=== PATIENT | female | born 1990 | race Caucasian/White ===

== ENCOUNTER 2016-09-25 12:23 | Outpatient (CLI) | payer MEDICAID ==
[~2016-09-25] VITALS: Ht 170.2 cm; Wt 70.0 kg
[~2016-09-25 12:23] MED LIST: FERR27TA PO; PREN1TAB49 PO
[2016-09-25 12:31] VITALS: Ht 170.2 cm; Wt 70.0 kg
[2016-09-25 12:40] VITALS: BP 115/68; PULSE 75
[2016-09-25] MEDS ORDERED: LACTATED RINGER'S 1,000 ML IV ONE (13:00)
[2016-09-25 13:30] LABS: BASOPHILS % 0.4 % (0.0-2.0); EOSINOPHILS % 0.6 % (0.0-7.0); HEMATOCRIT 39.6 % (37.0-47.0); HEMOGLOBIN 13.4 g/dl (12.0-16.0); LYMPHOCYTES # 1.8 10^3/ul (0.8-2.9); LYMPHOCYTES % 26.5 % (15.0-51.0); MEAN CORPUSCULAR HGB CONC 33.7 g/dl (32.0-37.0); MEAN CORPUSCULAR VOLUME 92.1 fl (82.0-101.0); MEAN PLATELET VOLUME 9.4 fl (7.4-10.4); MONOCYTE # 0.5 10^3/ul (0.3-0.9); MONOCYTES % 7.6 % (0.0-11.0); NEUTROPHIL # 4.4 10^3/ul (1.6-7.5); NEUTROPHILS % 64.9 % (39.0-77.0); PLATELET COUNT 193 10^3/UL (140-440); RED CELL DISTRIBUTION WIDTH 14.3 % (11.5-14.5); UNCORRECTED WBC 6.8 10^3/ul (4.8-10.8); WHITE BLOOD COUNT 6.8 10^3/ul (4.8-10.8)
[2016-09-25] MEDS ORDERED: TERBUTALINE 1 MG/ML INJ SC ONE ×2 (13:30→14:30)
[2016-09-25 13:33] LABS: CONDITION 1
[2016-09-25 13:38] LABS: ADD UMIC YES; URINE BILIRUBIN (Dip) NEGATIVE (NEGATIVE); URINE BLOOD (Dip) NEGATIVE (NEGATIVE); URINE COLOR LT. YELLOW (YELLOW); URINE GLUCOSE (Dip) NEGATIVE (NEGATIVE); URINE KETONES (Dip) NEGATIVE (NEGATIVE); URINE LEUKOCYTE ESTERASE (Dip) TRACE (NEGATIVE); URINE NITRITE (Dip) NEGATIVE (NEGATIVE); URINE TOTAL PROTEIN (Dip) NEGATIVE (NEGATIVE); URINE UROBILINOGEN (Dip) 0.2 E.U./dL (0.1-1.0)
[2016-09-25 13:49] LABS: SQUAMOUS EPITHELIAL CELL,UR FEW; URINE RBCS NONE SEEN /HPF (0)
--- NOTE | 2016-09-25 18:00 | TRIAGE ---
OB Triage Datetime Report Generated by CPN: 09/25/2016 17:59 Datetime: 09/25/2016 16:37 Stage of : OB Triage Labor Evaluation Frequency: NONE Monitor Mode: External Resting Tone [place]: Relaxed Heart Rate FHR Baseline Rate: 150 Monitor Mode: External US FHR Baseline Changes: No Baseline Change Variability: Moderate 6-25 bpm Accelerations: 15X15 Decelerations: None Category: Category I Pain Assessment Pain Scale: 0 Pain Presence: None/Denies Pain Type: N/A Pain Goal: 3 Datetime: 09/25/2016 15:56 Stage of : OB Triage Labor Evaluation Frequency: X2 Monitor Mode: External Duration (sec)2399: 30-40 Quality: Moderate Pattern: Normal: <= 5 Contractions in 10 Minutes Resting Tone [place]: Relaxed Heart Rate FHR Baseline Rate: 140 Monitor Mode: External US FHR Baseline Changes: No Baseline Change Variability: Moderate 6-25 bpm Accelerations: 15X15 Decelerations: None Category: Category I Pain Assessment Pain Scale: 0 Pain Presence: None/Denies Pain Type: N/A Pain Goal: 3 Datetime: 09/25/2016 15:00 Stage of : OB Triage Labor Evaluation Frequency: X4 Monitor Mode: External Duration (sec)2399: 60-90 Quality: Moderate Pattern: Normal: <= 5 Contractions in 10 Minutes Resting Tone [place]: Relaxed Heart Rate FHR Baseline Rate: 140 Monitor Mode: External US FHR Baseline Changes: No Baseline Change Variability: Moderate 6-25 bpm Accelerations: 15X15 Decelerations: None Category: Category I Pain Assessment Pain Scale: 0 Pain Presence: None/Denies Pain Type: N/A Pain Goal: 3 Pain Assessment Comments: PT STATES FEELING BETTER Datetime: 09/25/2016 14:00 Stage of : OB Triage Labor Evaluation Frequency: X5 Monitor Mode: External Duration (sec)2399: 60-90 Quality: Moderate Pattern: Normal: <= 5 Contractions in 10 Minutes Resting Tone [place]: Relaxed Heart Rate FHR Baseline Rate: 140 Monitor Mode: External US FHR Baseline Changes: No Baseline Change Variability: Moderate 6-25 bpm Accelerations: 15X15 Decelerations: None Category: Category I Pain Assessment Pain Scale: 0 Pain Presence: None/Denies Pain Type: N/A Pain Goal: 3 Datetime: 09/25/2016 13:30 Labor Evaluation Frequency: x4 Monitor Mode: External Duration (sec)2399: 60-90 Quality: Moderate Pattern: Normal: <= 5 Contractions in 10 Minutes Resting Tone [place]: Relaxed Heart Rate FHR Baseline Rate: 140 Monitor Mode: External US FHR Baseline Changes: No Baseline Change Variability: Moderate 6-25 bpm Accelerations: 15X15 Decelerations: None Category: Category I Pain Assessment Pain Scale: 0 Pain Presence: None/Denies Pain Type: N/A Pain Goal: 3 Datetime: 09/25/2016 12:56 Maternal Assessment Level of Consciousness: Fully Conscious DTR's/Clonus: DTRs 1+ Headache: Denies Blurred Vision: No Nausea/Vomiting: Denies RUQ Epigastric Pain: Denies Facial Edema: None Labor Evaluation Frequency: 2-4 Monitor Mode: External Duration (sec)2399: 60-80 Quality: Mild Pattern: Normal: <= 5 Contractions in 10 Minutes Resting Tone [place]: Relaxed Heart Rate FHR Baseline Rate: 140 Monitor Mode: External US Variability: Moderate 6-25 bpm Accelerations: 15X15 Decelerations: None Category: Category I Pain Assessment Pain Scale: 0 Pain Presence: None/Denies Pain Type: N/A Pain Goal: 3 Membrane Status: Intact Datetime: 09/25/2016 12:40 Vaginal Exam Dilatation (cms): 1.5 Effacement (%): 50 Station: -3 Exam By: CADY GILMAN Vaginal Bleeding: None Cervix, Consistency: Soft Cervix, Position: Midposition Datetime: 09/25/2016 12:27 Assessment Type: Triage Maternal Assessment Level of Consciousness: Fully Conscious DTR's/Clonus: DTRs 2+; No Clonus Headache: Denies Blurred Vision: No Respiratory Effort: Unlabored; Regular Rhythm; Equal Expansion Breath Sounds, Left: Clear and Equal Breath Sounds, Right: Clear and Equal Nausea/Vomiting: Denies RUQ Epigastric Pain: Denies Lower Extremities Edema: None Degree: None Upper Extremities Edema: None Degree: None Facial Edema: None Fall Risk Assessment History of Falling: (0) No Secondary Diagnosis: (0) No Ambulatory Aid: (0) Bedrest/Nurse Assist IV Therapy: (0) No Gait: (0) Normal/Bedrest/Immobile Mental Status: (0) Oriented to Own Ability Fall Score: 0 Fall Risk Score Definition: No Risk: No action required Datetime: 09/25/2016 12:25 Time of Arrival: 09/25/2016 12:25 EGA: 36.1 Arrived By: Ambulatory Arrived From: Other Unit in Hospital Chief Complaint: PT WAS SENT FROM NST TO R/OL LABOR REPEAT Movement: Present Contractions: Regular Contractions: 2-5 MIN Rupture of Membranes: Denies Vaginal Bleeding: None Vaginal Discharge: Denies Recent Sexual Intercouse: Denies Abdominal Trauma: Not Applicable Patient Complaints: Contractions Additional Patient Complaints: NONE Time Provider Notified: 09/25/2016 13:00 Provider Notified: JOSEPH Initial Plan: MONITOR AND VE IV HYDRATION AND TERBUTALINE X 2
--- NOTE | 2016-09-25 22:05 | NSTRPT ---
NST Information Datetime Report Generated by CPN: 09/25/2016 22:05 Datetime: 09/25/2016 10:55 NST Information EGA: 36.1 Test Number: 8 Time on Monitor: 09/25/2016 11:02 Time off Monitor: 09/25/2016 11:49 NST Duration (Min): 47 Reason for NST: Low RAFI Test and Monitor Explained: Monitor Explained; Test Explained; Verbalized Understanding Pulse: 74 Resp: 19 SBP: 94 DBP: 57 Test Evaluation NST Interventions: PO Hydration Patient States Movement: Present Contraction Frequency: Q2-5min, mild FHR Baseline : 135 Variability: Moderate 6-25bpm Accelerations: 15X15 Decelerations: None FHR Category: Category I NST Results: Reactive Comments: PT TO U/S. [place] 16.6, cephalic. 1202- Report given to Dr. Jeffery. New orderes received. S end patient to OB-TRG to r/o Labor for Hx of previoues C/section x2. Explained to Pt Plan of Care. F ollow up NST appointment given. Pt states understanding. (Annotations: Data stored by [facility] on behalf of user) Comments: PT TO U/S. [place] 16.6, cephalic. 1204-Pt to OB Triage Electronically Signed By E-Signature: with User ID: [id number] Datetime: 09/20/2016 10:42 NST Information EGA: 35.3 NST Duration (Min): 33 Datetime: 09/13/2016 10:55 NST Information EGA: 34.3 NST Duration (Min): 23 Datetime: 09/10/2016 10:23 NST Information EGA: 34.0 NST Duration (Min): 33 Datetime: 09/06/2016 08:43 NST Information EGA: 33.3 NST Duration (Min): 34 Datetime: 09/03/2016 08:51 NST Information EGA: 33.0 NST Duration (Min): 43 Datetime: 08/30/2016 08:48 NST Information EGA: 32.3 NST Duration (Min): 33 Datetime: 08/27/2016 09:18 NST Information EGA: 32.0 Datetime: 08/27/2016 09:11 NST Duration (Min): 44
== END 2016-09-25 16:58 | disposition home or self-care (01) ==
LOC: OBT 12:23 → L-D 12:24 → OBT 16:58
PROVIDERS: ATTEND Obstetrics & Gynecology
DX: O62.9 Abnormality of forces of labor, unspecified (principal); O34.219 Maternal care for unspecified type scar from previous cesarean delivery; Z3A.36 36 weeks gestation of pregnancy
CPT/HCPCS: 36415; 81001; 85025; 86592; 86850; 86900; 86901; 96360; 96372; J3105; J7120; Z7500; 81003; G0463

== ENCOUNTER 2016-10-05 10:14 | Inpatient (IN) | payer MEDICAID ==
[2016-10-05] VITALS (7 sets, daily range): BP systolic 89–110; BP diastolic 49–72; PULSE 74–91; RESP 18; Ht 162.6 cm; Wt 73.7 kg
[~2016-10-05] VITALS: Ht 162.6 cm; Wt 73.7 kg
[~2016-10-05 10:14] MED LIST changes: +OXYTOCIN 30 UNITS/LR 500 ML BAG IV ONE
--- NOTE | 2016-10-05 10:54 | TRIAGE ---
OB Triage Datetime Report Generated by CPN: 10/05/2016 10:53 Datetime: 10/05/2016 10:44 Vaginal Exam Dilatation (cms): 0.0 Effacement (%): 0 Station: -3 Exam By: Maryanne RN Datetime: 10/05/2016 10:29 Assessment Type: Triage Maternal Assessment Level of Consciousness: Fully Conscious DTR's/Clonus: DTRs 2+; No Clonus Headache: Denies Blurred Vision: No Respiratory Effort: Unlabored; Regular Rhythm; Equal Expansion Breath Sounds, Left: Clear and Equal Breath Sounds, Right: Clear and Equal Nausea/Vomiting: Denies RUQ Epigastric Pain: Denies Lower Extremities Edema: Bilateral Lower Extremities Degree: 1+ Upper Extremities Edema: None Degree: None Facial Edema: None Temperature Route: Oral Fall Risk Assessment History of Falling: (0) No Secondary Diagnosis: (0) No Ambulatory Aid: (0) Bedrest/Nurse Assist IV Therapy: (0) No Gait: (0) Normal/Bedrest/Immobile Mental Status: (0) Oriented to Own Ability Fall Score: 0 Fall Risk Score Definition: No Risk: No action required Datetime: 10/05/2016 10:26 Stage of : OB Triage Datetime: 10/05/2016 10:24 Time of Arrival: 10/05/2016 10:14 EGA: 37.4 Arrived By: Ambulatory Arrived From: Other Unit in Hospital Chief Complaint: UC, perineal pressure Movement: Present Contractions: Regular Time Contractions Began: 10/05/2016 04:45 Rupture of Membranes: Ruptured Vaginal Bleeding: None Vaginal Discharge: Denies Recent Sexual Intercouse: Denies Abdominal Trauma: Not Applicable Patient Complaints: Contractions Time Provider Notified: 10/05/2016 10:47 Provider Notified: Jose D Initial Plan: NST Datetime: 09/25/2016 16:45 Patient Complaints: Other Datetime: 09/25/2016 12:27 Fall Score: 0 Fall Risk Score Definition: No Risk: No action required Datetime: 09/25/2016 12:25 EGA: 36.1
[2016-10-05] MEDS ORDERED: OXYTOCIN 30 UNITS/LR 500 ML IV SCH (11:00)
[2016-10-05] MEDS ORDERED: CEFAZOLIN 2 GM/50 ML (PMX) 50 ML IV SCH (11:00)
[2016-10-05] MEDS ORDERED: LACTATED RINGER'S 1,000 ML IV SCH (11:00)
[2016-10-05] MEDS ORDERED: MISOPROSTOL 200 MCG TAB PR PRN ×2 (11:00→20:30)
[2016-10-05] MEDS ORDERED: OXYTOCIN 30 UNITS/LR 500 ML IV PRN ×2 (11:00→20:30)
[2016-10-05] MEDS ORDERED: METHYLERGONOVINE 0.2 MG INJ IM PRN ×2 (11:00→20:30)
[2016-10-05] MEDS ORDERED: CARBOPROST 250 MCG INJ IM PRN ×2 (11:00→20:30)
[2016-10-05 12:04] LABS: BASOPHILS % 0.6 % (0.0-2.0); EOSINOPHILS # 0.1 10^3/ul (0.0-0.5); EOSINOPHILS % 0.9 % (0.0-7.0); HEMOGLOBIN 12.7 g/dl (12.0-16.0); LYMPHOCYTES # 2.2 10^3/ul (0.8-2.9); LYMPHOCYTES % 32.9 % (15.0-51.0); MEAN CORPUSCULAR HEMOGLOBIN 31.2 pg (29.0-33.0); MEAN CORPUSCULAR HGB CONC 33.5 g/dl (32.0-37.0); MEAN PLATELET VOLUME 8.9 fl (7.4-10.4); MONOCYTE # 0.5 10^3/ul (0.3-0.9); MONOCYTES % 7.7 % (0.0-11.0); NEUTROPHIL # 3.8 10^3/ul (1.6-7.5); NEUTROPHILS % 57.9 % (39.0-77.0); PLATELET COUNT 197 10^3/UL (140-440); RED BLOOD COUNT 4.09 10^6/ul (4.20-5.40); RED CELL DISTRIBUTION WIDTH 13.9 % (11.5-14.5); UNCORRECTED WBC 6.6 10^3/ul (4.8-10.8); WHITE BLOOD COUNT 6.6 10^3/ul (4.8-10.8)
[2016-10-05 12:06] LABS: CONDITION 1
[2016-10-05 12:10] LABS: INR 0.96; PROTIME 12.8 Sec (12.2-14.2)
[2016-10-05 12:11] LABS: PARTIAL THROMBOPLASTIN TIME 27.5 Sec (25.0-35.0)
[2016-10-05] MEDS ORDERED: morphine SULFATE/PF (10 MG/10 ML) INJ ONE (15:25)
[2016-10-05] MEDS ORDERED: PHENYLephrine (100 MCG/ML) 5ML SYG ONE (15:25)
[2016-10-05] MEDS ORDERED: EPHEDrine SULFATE 50 MG/5 ML SYG ONE (15:26)
[2016-10-05] MEDS ORDERED: KETOROLAC 30 MG INJ IV ONE (16:00)
[2016-10-05] MEDS ORDERED: DIPHENHYDRAMINE 50 MG INJ IV PRN (16:00)
[2016-10-05] MEDS ORDERED: FENTAnyl 50 MCG/ML VIAL IV PRN ×2 (16:00)
[2016-10-05] MEDS ORDERED: ONDANSETRON 4 MG INJ IV PRN ×2 (16:00)
[2016-10-05] MEDS ORDERED: MEPERIDINE 25 MG INJ IV PRN (16:00)
[2016-10-05] MEDS ORDERED: PROCHLORPERAZINE 10 MG INJ IV PRN (16:00)
[2016-10-05] MEDS ORDERED: HYDROmorphONE (0.2 MG/ML) 10ML SYG IV PRN ×3 (16:00)
[2016-10-05] MEDS ORDERED: NALOXONE (0.4 MG/ML) INJ IV PRN (16:00)
[2016-10-05] MEDS ORDERED: HYDROmorphONE 1 MG/ML SYG IV PRN ×2 (16:00)
[2016-10-05] MEDS ORDERED: ZOLPIDEM 5 MG TAB PO PRN (16:00)
--- NOTE | 2016-10-05 16:28 | HP ---
Date/Time of Note Date/Time of Note DATE: 10/05/16 TIME: 16:23 OB - History Hx of Present Free Text/Dictation admitted in labor at 37+ weeks in labor and history of previous C/S X 2 Chief Complaint: labor contractions Last Menstrual Period: Jan 16, 2016 Estimated Due Date: Oct 22, 2016 : 3 Para: 2 Care: Good Care Ultrasounds: Normal mid trimester US Obstetrical Complications: None Medical Complications: Other (previous C/S X 2 ) Past Family/Social History * Past Medical, Surgical, Family and Obstetric Histories reviewed from chart. Blood Type: O+ Rubella: immune RPR/VDRL: Negative GBS Status: Unknown HBsAG: Negative OB Admission Exam Vital Signs Vital Signs Vital Signs Date Time Temp Pulse Resp B/P Pulse Ox O2 Delivery O2 Flow Rate FiO2 10/05/16 10:31 98.2 91 18 110/72 Room Air Physical Exam HEENT: WNL Heart: Rhythm Normal Lungs: Clear, Equal Abdomen: WNL Extremities: Normal Reflexes: Normal Cervical Dilatation: Fingertip Effacement: 0% Station: Ballotable Membranes: Intact Heart Rate: 150's Accelerations: Accelerations Present Decelerations: No Decelerations Varibility: Marked Contractions on Admission: < 5 Minutes Apart Date/Time Contractions Began: 10/05/2015 0800 Frequency of Contractions: q 2 Duration: >60 seconds Intensity: Moderate Last 72 hours Lab Results CBC & BMP 10/05/16 11:30 OB Assessment/Plan Other Assessment: 37 + weeks gestation previous C/S X 2 labor pains Other plan: repeat C/S PRERNA TREVINO MD Oct 05, 2016 16:28
--- NOTE | 2016-10-05 16:31 | OPR ---
Operative Report Planned Procedure Procedure date Oct 05, 2016 Procedure(s) repeat C/S Performed by: PRERNA TREVINO MD Assisting provider: JUMANA MARTINEZ MD Anesthesiologist: MARISOL DAVID Pre-procedure diagnosis 37 + weeks gestation previous C/S X 2 labor pains Anesthesia Type: spinal Procedure Description Under satisfactory anaesthesia a Pfannenstiel incision was made two fingerbreadth above and parallel to the symphysis of pubis around the previous scar and previous scar was removed Incision was extended laterally to the border of the Recti muscles on either sides. Incision was carried down with sharp and blunt dissection until fascia was reached. Anterior Recti muscle fascia was incised in mid portion and incision extended laterally to the border of skin incision. Fascia was mobilized from muscle superiorly and Recti muscles were from midline using sharp and blunt dissection. Peritoneum was visualized; Avoiding bowel and bladder it was incised . Incision was extended superiorly and inferiorly. Bladder blade was placed. Posterior peritoneum covering the lower segment of the uterus and lower segment of the uterus were incised.Low transverse uterine incision was made on lower segment of the uterus. Incision extended laterally to the border of Round Lig. on either sides and baby was delivered from OT. position . Amniotic fluid appeared clear. Cord blood was obtained and cord had 3 vessels . Placenta was delivered spontaneously and appeared intact and complete. Intrauterine cavity was rubbed with a laparotomy sponge. Uterine incision was closed in 2 layers using running stitches of No1 Monocryl. Hemostasis appeared secure. Ovaries and Fallopian tubes were within normal limits. Announcing needle, lap sponge and instrument count to be correct abdomen was closed in layers as follows: Peritoneum and Recti muscles with running stitches of 20 Vicryl. Fascia with running stitch of No 1 PDS. Subcutaneous tissue with running stitches of 20 Chromic and skin was closed using thalia. Patient tolerated the procedure well and was transferred to [facility] in good condition. Post-Procedure Post-procedure diagnosis S/P C/S Findings: Live Baby Specimen removed: No Complications: None Pt Condition post procedure: stable Disposition: PACU Physician Certification I, the undersigned physician, hereby certify that I have discussed the procedure described in this consent form with this patient (or the patient's legal players club representative), including: * The risk and benefits of the procedure; * Any adverse reactions that may reasonably be expected to occur; * Any alternative efficacious methods of treatment which may be medically viable ; * The potential problems that may occur during recuperation; * Potential for blood transfusion and associated risks/benefits; and * Any research or economic interest I may have regarding this treatment. I further certify that the patient/legally responsible person was encouraged to ask question and that all questions were answered. PRERNA TREVINO MD Oct 05, 2016 16:30
[2016-10-05] MEDS ORDERED: LANOLIN 7 GM TUBE TOP PRN (20:30)
[2016-10-05] MEDS ORDERED: NA PHOSPHATE/BIPHOS 133 ML ENEMA PR PRN (20:30)
[2016-10-05] MEDS ORDERED: ACETAMINOPHEN/CODEINE #3 TAB PO PRN (20:30)
[2016-10-05] MEDS: SENNA/DOCUSATE NA (8.6MG/50MG) TAB PO SCH (21:00)
[2016-10-05] MEDS: CEFAZOLIN 2 GM/50 ML (PMX) 50 ML IV SCH (21:19)
[2016-10-05] MEDS: LACTATED RINGER'S 1,000 ML IV SCH (22:33)
[2016-10-06] VITALS: BP 101/58; PULSE 75; RESP 18
[2016-10-06 03:57] VITALS: BP 100/55; PULSE 76; RESP 18
[2016-10-06] MEDS: CEFAZOLIN 2 GM/50 ML (PMX) 50 ML IV SCH ×2 (04:33→11:57)
[2016-10-06] MEDS: KETOROLAC 30 MG INJ IV PRN ×2 (04:54→11:57)
[2016-10-06] MEDS: CLINDAMYCIN 300 MG CAP PO SCH ×3 (06:00→18:10)
[2016-10-06] MEDS: LACTATED RINGER'S 1,000 ML IV SCH ×2 (06:43→12:30)
[2016-10-06 07:58] LABS: BASOPHILS % 0.5 % (0.0-2.0); EOSINOPHILS % 0.3 % (0.0-7.0); HEMATOCRIT 34.5 % (37.0-47.0); HEMOGLOBIN 11.7 g/dl (12.0-16.0); LYMPHOCYTES # 1.8 10^3/ul (0.8-2.9); LYMPHOCYTES % 21.2 % (15.0-51.0); MEAN CORPUSCULAR HEMOGLOBIN 31.6 pg (29.0-33.0); MEAN CORPUSCULAR VOLUME 93.1 fl (82.0-101.0); MEAN PLATELET VOLUME 9.1 fl (7.4-10.4); MONOCYTE # 0.6 10^3/ul (0.3-0.9); PLATELET COUNT 182 10^3/UL (140-440); UNCORRECTED WBC 8.4 10^3/ul (4.8-10.8); WHITE BLOOD COUNT 8.4 10^3/ul (4.8-10.8)
[2016-10-06 08:00] VITALS: BP 100/50; PULSE 69; RESP 17
[2016-10-06 08:09] LABS: CONDITION 1
[2016-10-06] MEDS: SENNA/DOCUSATE NA (8.6MG/50MG) TAB PO SCH ×2 (08:44→21:45)
[2016-10-06] MEDS ORDERED: BISACODYL 10 MG SUPP PR ONE (09:30)
[2016-10-06 12:00] VITALS: BP 101/55; PULSE 68; RESP 17
[2016-10-06] MEDS: IBUPROFEN 800 MG TAB PO SCH ×2 (14:00→21:45)
--- NOTE | 2016-10-06 15:42 | PN ---
Date/Time of Note Date/Time of Note DATE: 10/06/16 TIME: 15:39 Assessment/Plan VTE Prophylaxis VTE Prophylaxis Intervention: ambulation Lines/Catheters IV Catheter Type (from Nrs): Peripheral IV Assessment/Plan Assessment/Plan POD # 1 S/P C/S will advance diet and ambulate Subjective 24 Hr Interval Summary NO BM passing flatus Exam/Review of Systems Vital Signs Vitals Vital Signs Date Time Temp Pulse Resp B/P Pulse Ox O2 Delivery O2 Flow Rate FiO2 10/06/16 12:00 98.4 68 17 101/55 Room Air 10/06/16 09:05 96 10/06/16 05:22 21 Intake and Output 10/05/16 10/05/16 10/06/16 15:00 23:00 07:00 Intake Total 1175 ml 50 ml 1050 ml Output Total 350 ml 700 ml 1400 ml Balance 825 ml -650 ml -350 ml Exam Free Text/Dictation vss P/E : NL abdomen: soft BS + Incision: covered Results Result Diagram: 10/06/16 0645 PRERNA TREVINO MD Oct 06, 2016 15:42
[2016-10-06 16:00] VITALS: BP 106/58; RESP 17
[2016-10-06] MEDS: OXYCODONE/ACETAMINOPHEN (5/325) TAB PO PRN (18:14)
[2016-10-06 19:25] VITALS: BP 111/66; PULSE 77; RESP 19
[2016-10-07 03:30] VITALS: BP 102/64; PULSE 67; RESP 19
[2016-10-07] MEDS: IBUPROFEN 800 MG TAB PO SCH ×3 (05:41→21:10)
[2016-10-07] MEDS: CLINDAMYCIN 300 MG CAP PO SCH ×4 (05:41→18:09)
[2016-10-07 08:10] VITALS: BP 96/56; PULSE 61; RESP 16
[2016-10-07] MEDS: SENNA/DOCUSATE NA (8.6MG/50MG) TAB PO SCH ×2 (09:07→21:10)
--- NOTE | 2016-10-07 14:42 | DS ---
Date/Time of Note Date/Time of Note home next day DATE: 10/07/16 TIME: 14:41 Obstetrical Discharge Record Final Diagnosis Final Diagnosis: Term delivered Other Final Diagnosis S/P repeat C/S Section Section: Repeat Condition on Discharge Physical Assessment Last Vitals: see nurses notes Voiding: Yes Bowel Movement: Yes Breast: Soft, non-tender, Filling Fundus: Firm Abdomen and Incision: soft BS + Incision: healing well Episiotomy: NA Calf Tenderness: No Patient Condition: Good PRERNA TREVINO MD Oct 07, 2016 14:42
--- NOTE | 2016-10-07 14:44 | DS ---
Date/Time of Note Date/Time of Note DATE: 10/07/16 TIME: 14:42 Discharge Summary Admission/Discharge Info Admit Date/Time Oct 05, 2016 at 10:59 Discharge Date/Time 10/08/2016 Final Diagnosis S/P repeat C/S Patient Condition: Good Procedures repeat C/S Hx of Present Illness 26 y/o female had reepat C/S Hospital Course Uncomplicated Home Meds Reported Medications Ferrous Sulfate (Iron) 1 Tab Tablet, 1 TAB PO DAILY 05/16/12 Vits W-Ca,Fe,Fa(<1MG) () 1 Tab Tablet, 1 TAB PO 05/16/12 Follow-up Plan 2 days in clinic for staple removal PRERNA TREVINO MD Oct 07, 2016 14:44
--- NOTE | 2016-10-07 14:46 | PD.PPDC ---
RESEARCH NEUROPSYCHOLOGIST Discharge Instruction Provider Information Physician Information 26 y/o female had repeat C/S Diagnosis Final Diagnosis: S/P C/S Condition Patient Condition: Good Diet Diet: Resume Regular Diet Activity/Restrictions Activity: January Shower Restrictions: No Exercising No Lifting Nothing in the Vagina Return to Work or School: Dec 10, 2016 Wound/Drain Care Instructions Wound/Drain Care Instructions: Keep clean and dry Additional Instructions: remove thalia in 2 -3 days Follow-up Follow-up with Physician: 2, Day/Days Return to clinic for GIFT MANAGER Instructions: Fever greater than 101 Chills Excessive Vaginal Bleeding OB Instructions: Breast Tenderness Depression Surgical Instructions: Incisional Drainage Incisional Redness PRERNA TREVINO MD Oct 07, 2016 14:46
[2016-10-07] MEDS ORDERED: PERCOCET PO (14:47)
[2016-10-07] MEDS ORDERED: IBUP800T25 PO (14:47)
[2016-10-07 16:00] VITALS: BP 104/72; PULSE 70; RESP 17
[2016-10-07 20:15] VITALS: BP 104/65; PULSE 67; RESP 20
[2016-10-07] MEDS: OXYCODONE/ACETAMINOPHEN (5/325) TAB PO PRN (23:02)
[2016-10-08] MEDS: CLINDAMYCIN 300 MG CAP PO SCH ×2 (00:49→05:29)
[2016-10-08 04:45] VITALS: BP 95/52; PULSE 98; RESP 20
[2016-10-08] MEDS: IBUPROFEN 800 MG TAB PO SCH (05:29)
[2016-10-08] MEDS ORDERED: DIPHTH/TET/ACEL PERTUSS (ADULT) 0.5 ML VIAL IM* ONE (09:00)
[2016-10-08] MEDS ORDERED: MEASLES,MUMPS,RUBELLA VACCINE INJ SC* ONE (09:00)
[2016-10-08] MEDS: SENNA/DOCUSATE NA (8.6MG/50MG) TAB PO SCH (09:21)
--- NOTE | 2016-10-08 20:38 | NSTRPT ---
NST Information Datetime Report Generated by CPN: 10/08/2016 20:38 Datetime: 10/05/2016 08:34 NST Information EGA: 37.4 Test Number: 11 Time on Monitor: 10/05/2016 08:54 Time off Monitor: 10/05/2016 09:21 NST Duration (Min): 27 Reason for NST: Low RAFI Test and Monitor Explained: Monitor Explained; Test Explained; Verbalized Understanding Pulse: 72 Resp: 18 SBP: 107 DBP: 69 Test Evaluation NST Interventions: PO Hydration Patient States Movement: Present Contraction Frequency: q4-7, pt states 04/01 pain stated 0430 today FHR Baseline : 125 Variability: Moderate 6-25bpm Accelerations: 15X15 Decelerations: None FHR Category: Category I NST Results: Reactive Comments: PT TO U/S. elise-19.9, ceph, VE:CL/SFT/POST. 1005-Pt to OB-TRG to assess for labor. Pt has hx of previous C/section. Report given to Katarina LAZAR. Explained to pt plan of care. Pt states unde rstanding. Electronically Signed By E-Signature: with User ID: [id number] Datetime: 10/01/2016 09:10 NST Information EGA: 37.0 NST Duration (Min): 40 Datetime: 09/27/2016 10:41 NST Information EGA: 36.3 NST Duration (Min): 23 Datetime: 09/25/2016 10:55 NST Information EGA: 36.1 NST Duration (Min): 47 Datetime: 09/20/2016 10:42 NST Information EGA: 35.3 NST Duration (Min): 33 Datetime: 09/13/2016 10:55 NST Information EGA: 34.3 NST Duration (Min): 23 Datetime: 09/10/2016 10:23 NST Information EGA: 34.0 NST Duration (Min): 33 Datetime: 09/06/2016 08:43 NST Information EGA: 33.3 NST Duration (Min): 34 Datetime: 09/03/2016 08:51 NST Information EGA: 33.0 NST Duration (Min): 43 Datetime: 08/30/2016 08:48 NST Information EGA: 32.3 NST Duration (Min): 33 Datetime: 08/27/2016 09:18 NST Information EGA: 32.0 Datetime: 08/27/2016 09:11 NST Duration (Min): 44
== END 2016-10-08 12:50 | disposition home or self-care (01) | DRG 766 ==
LOC: OBT 10:14 → L-D 10:14 → OBT 10:58 → L-D 10:59 → PP1 19:28
PROVIDERS: ADMIT Obstetrics & Gynecology; ATTEND Obstetrics & Gynecology
PROC: 10D00Z1 Extraction of Products of Conception, Low, Open Approach (ICD-10-PCS; principal; 2016-10-05 16:00)
DX: O34.211 Maternal care for low transverse scar from previous cesarean delivery (principal); Z37.0 Single live birth; Z3A.37 37 weeks gestation of pregnancy
CPT/HCPCS: 85025; 85610; 85730; 86592; 86850; 86900; 86901; 87340; 90715; 94760; 99464; G0463; J0690; J1885; J2274; J2370; J2590; J7120